=== PATIENT | female | born 1955 | race Caucasian/White ===

== ENCOUNTER 2022-03-09 23:53 | Inpatient (IN) | payer OTHER ==
[~2022-03-09] VITALS: Ht 170.2 cm; Wt 116.7 kg
[2022-03-10 02:00] LABS: Basophils # (auto) 0 10 ^3/uL (0-0.2); Basophils % (auto) 0.1 % (0.0-2.0); Eosinophils # (auto) 0 10 ^3/uL (0-0.8); Eosinophils % (auto) 0.1 % (0.0-7.0); Hematocrit 31.3 % (36.0-46.0); Hemoglobin 10.4 g/dL (12.2-16.2); Lymphocytes # (auto) 0.5 10 ^3/uL (0.4-5.4); Lymphocytes % (auto) 4.2 % (10.0-50.0); Mean Corpuscular Hemoglobin 28.9 pg (28.0-32.0); Mean Corpuscular Hgb Conc. 33.3 g/dL (32.0-36.0); Mean Corpuscular Volume 86.7 fL (80.0-100.0); Monocytes # (auto) 0.9 10 ^3/uL (0-1.3); Monocytes % (auto) 8.2 % (0.0-12.0); Neutrophils # (auto) 10.1 10 ^3/uL (1.6-8.6); Neutrophils % (auto) 87.4 % (37.0-80.0); Nucleated Red Blood Cells % 0.1 %; Red Blood Cells 3.61 10^6/uL (4.0-5.20); Red Cell Distribution Width 13.9 % (11.8-14.3); White Blood Cell 11.5 10^3/uL (4.4-10.8)
[2022-03-10 02:19] LABS: Albumin 3.1 g/dL (3.4-5.0); Calcium 8.1 mg/dL (8.5-10.1); Potassium 3.8 mmol/L (3.5-5.1)
[2022-03-10 02:21] LABS: BUN/Creatinine Ratio 23.2
[2022-03-10 02:23] LABS: Bilirubin, Total 1.1 mg/dL (0.2-1.0); Total Protein 6.9 g/dL (6.4-8.2)
[2022-03-10 06:50] LABS: Urine Bacteria NONE SEEN /hpf (None Seen); Urine Blood Negative /uL (Negative); Urine Specific Gravity 1.013 (1.001-1.035); Urine WBC 19 /hpf (0 - 5)
[2022-03-10] MEDS ORDERED: FUROSEMIDE 100 MG/10ML VIAL IV ONE (12:45)
[2022-03-10] MEDS ORDERED: AZITHROMYCIN 500MG/ 250ML 250 ML IV ONE (13:00)
[2022-03-10] MEDS ORDERED: DEXTROSE (50%) 50ML SYRG IV PRN (13:00)
[2022-03-10] MEDS ORDERED: BACL10TA PO (13:24)
[2022-03-10] MEDS ORDERED: CHOL20007 OR (13:24)
[2022-03-10] MEDS ORDERED: POTA10TA51 PO (13:24)
[2022-03-10] MEDS ORDERED: HYDR25TA4 PO (13:24)
[2022-03-10] MEDS ORDERED: CARV6.25 PO (13:24)
[2022-03-10] MEDS ORDERED: AMLO-489 PO (13:24)
[2022-03-10] MEDS ORDERED: ASPI-543 PO (13:24)
[2022-03-10] MEDS ORDERED: FURO1TAB31 PO (13:24)
[2022-03-10] MEDS ORDERED: FEBU40TA PO (13:24)
[2022-03-10] MEDS ORDERED: ATOR40TA52 PO (13:24)
[2022-03-10] MEDS ORDERED: FUROSEMIDE 40 MG/4 ML VIAL IV ONE (13:30)
[2022-03-10] MEDS ORDERED: INS7030I SC ×2 (13:30)
[2022-03-10] MEDS: SODIUM CHLOR 0.9% PF (SALINE LOCK) 10ML VIAL/SYR IV SCH ×2 (14:20→22:53)
[2022-03-10 15:14] LABS: INR 0.98 (0.9-1.15); Partial Thromboplastin Time 32.3 sec (24.6-33.4)
[2022-03-10 17:15] LABS: Hepatitis A Ab IgM Negative; Hepatitis B Core IgM Negative; Hepatitis C Antibody Negative (Negative)
[2022-03-10] MEDS: InsuLIN REG 1unit/0.01ml Soln (100units/ml) SC SCH ×2 (17:26→23:32)
[2022-03-10] MEDS: ACCU-CHEK COMFORT CURVE STRIP VI SCH ×2 (17:26→23:27)
[2022-03-11] MEDS: SODIUM CHLOR 0.9% PF (SALINE LOCK) 10ML VIAL/SYR IV SCH ×3 (06:00→21:56)
[2022-03-11 07:07] LABS: Basophils # (auto) 0.1 10 ^3/uL (0-0.2); Basophils % (auto) 0.8 % (0.0-2.0); Eosinophils # (auto) 0.1 10 ^3/uL (0-0.8); Eosinophils % (auto) 1.1 % (0.0-7.0); Hematocrit 31.4 % (36.0-46.0); Hemoglobin 10.5 g/dL (12.2-16.2); Lymphocytes # (auto) 1.1 10 ^3/uL (0.4-5.4); Lymphocytes % (auto) 10.9 % (10.0-50.0); Mean Corpuscular Hemoglobin 28.7 pg (28.0-32.0); Mean Corpuscular Hgb Conc. 33.6 g/dL (32.0-36.0); Mean Corpuscular Volume 85.5 fL (80.0-100.0); Monocytes % (auto) 9.5 % (0.0-12.0); Neutrophils % (auto) 77.7 % (37.0-80.0); Nucleated Red Blood Cells % 0.1 %; Red Blood Cells 3.67 10^6/uL (4.0-5.20); White Blood Cell 10.3 10^3/uL (4.4-10.8)
[2022-03-11 07:28] LABS: Albumin 2.8 g/dL (3.4-5.0); Calcium 8.4 mg/dL (8.5-10.1); Potassium 3.9 mmol/L (3.5-5.1)
[2022-03-11 07:33] LABS: BUN/Creatinine Ratio 23.5; Total Protein 7.2 g/dL (6.4-8.2)
[2022-03-11] MEDS: ACCU-CHEK COMFORT CURVE STRIP VI SCH ×4 (08:16→21:46)
[2022-03-11] MEDS: InsuLIN REG 1unit/0.01ml Soln (100units/ml) SC SCH ×4 (08:20→21:46)
[2022-03-11] MEDS: ENOXAPARIN SOD 40 MG/0.4 ML SYRINGE SC SCH (12:04)
[2022-03-11] MEDS: AZITHROMYCIN 500MG/ 250ML 250 ML IV SCH (12:29)
[2022-03-11] MEDS ORDERED: BACLOFEN 10 MG TAB PO PRN (13:15)
[2022-03-11] MEDS ORDERED: CARVEDILOL 3.125 MG TAB PO ONE (13:45)
[2022-03-11 14:04] VITALS: BP 133/46
[2022-03-11] MEDS: ALBUTEROL SULF 2.5 MG/0.5ML(0.5%) NEB SOLN NEB SCH ×3 (14:47→22:26)
[2022-03-11] MEDS: IPRATROPIUM BROM 0.5 MG/2.5ML INH SOL NEB SCH ×3 (14:47→22:26)
[2022-03-11] MEDS: FUROSEMIDE 20 MG/2 ML VIAL IV SCH (17:16)
[2022-03-11] MEDS: BUDESONIDE (INHALATION) 0.5 MG/2 ML NEB NEB SCH (19:49)
[2022-03-11] MEDS: CARVEDILOL 3.125 MG TAB PO SCH (21:44)
[2022-03-11] MEDS: POTASSIUM CHL 10 Meq TABLET PO SCH (21:45)
[2022-03-11] MEDS: INSULIN 70/30 1unit/0.01ml Susp (100units/ml) SC SCH (21:46)
[2022-03-11 22:00] VITALS: BP 131/44
[2022-03-12 05:00] VITALS: BP 133/48
[2022-03-12] MEDS: BUDESONIDE (INHALATION) 0.5 MG/2 ML NEB NEB SCH ×2 (05:43→22:15)
[2022-03-12] MEDS: ALBUTEROL SULF 2.5 MG/0.5ML(0.5%) NEB SOLN NEB SCH ×5 (05:43→22:15)
[2022-03-12] MEDS: IPRATROPIUM BROM 0.5 MG/2.5ML INH SOL NEB SCH ×5 (05:43→22:15)
[2022-03-12] MEDS: ACCU-CHEK COMFORT CURVE STRIP VI SCH ×4 (06:26→22:37)
[2022-03-12] MEDS: SODIUM CHLOR 0.9% PF (SALINE LOCK) 10ML VIAL/SYR IV SCH ×3 (06:27→22:34)
[2022-03-12] MEDS: InsuLIN REG 1unit/0.01ml Soln (100units/ml) SC SCH ×4 (06:27→22:37)
[2022-03-12] MEDS: FUROSEMIDE 20 MG/2 ML VIAL IV SCH ×2 (06:30→17:22)
[2022-03-12 07:04] LABS: BUN/Creatinine Ratio 28.4; Calcium 8.3 mg/dL (8.5-10.1); Potassium 4.1 mmol/L (3.5-5.1)
[2022-03-12] MEDS: INSULIN 70/30 1unit/0.01ml Susp (100units/ml) SC SCH ×2 (07:50→22:36)
[2022-03-12] MEDS: ENOXAPARIN SOD 40 MG/0.4 ML SYRINGE SC SCH (08:36)
[2022-03-12] MEDS: ASPirin-EC 81 mg tab PO SCH (08:36)
[2022-03-12] MEDS: CARVEDILOL 3.125 MG TAB PO SCH ×2 (08:37→22:35)
[2022-03-12] MEDS: ATORVASTATIN 20 MG TAB PO SCH (08:37)
[2022-03-12] MEDS: AZITHROMYCIN 500MG/ 250ML 250 ML IV SCH (08:38)
[2022-03-12] MEDS: POTASSIUM CHL 10 Meq TABLET PO SCH ×2 (08:38→22:35)
[2022-03-12 09:00] VITALS: BP 152/52
[2022-03-12] MEDS ORDERED: guaiFENesin-DM 100/10mg/5ml SYR PO PRN (09:15)
[2022-03-12 13:00] VITALS: BP 145/90
[2022-03-12 16:30] VITALS: BP 152/50
[2022-03-12 22:00] VITALS: BP 145/50
[2022-03-13 05:00] VITALS: BP 141/61
[2022-03-13 05:14] LABS: Basophils # (auto) 0 10 ^3/uL (0-0.2); Basophils % (auto) 0.5 % (0.0-2.0); Eosinophils # (auto) 0.4 10 ^3/uL (0-0.8); Eosinophils % (auto) 4.8 % (0.0-7.0); Hemoglobin 9.4 g/dL (12.2-16.2); Lymphocytes % (auto) 12.3 % (10.0-50.0); Mean Corpuscular Hemoglobin 28.6 pg (28.0-32.0); Mean Corpuscular Hgb Conc. 33.4 g/dL (32.0-36.0); Mean Corpuscular Volume 85.4 fL (80.0-100.0); Monocytes # (auto) 0.8 10 ^3/uL (0-1.3); Monocytes % (auto) 9.5 % (0.0-12.0); Neutrophils # (auto) 6.2 10 ^3/uL (1.6-8.6); Neutrophils % (auto) 72.9 % (37.0-80.0); Red Blood Cells 3.28 10^6/uL (4.0-5.20); Red Cell Distribution Width 13.7 % (11.8-14.3); White Blood Cell 8.5 10^3/uL (4.4-10.8)
[2022-03-13] MEDS: FUROSEMIDE 20 MG/2 ML VIAL IV SCH ×2 (05:16→16:36)
[2022-03-13] MEDS: SODIUM CHLOR 0.9% PF (SALINE LOCK) 10ML VIAL/SYR IV SCH ×3 (05:16→21:43)
[2022-03-13 05:33] LABS: Calcium 8.2 mg/dL (8.5-10.1); Potassium 4.2 mmol/L (3.5-5.1)
[2022-03-13] MEDS: ALBUTEROL SULF 2.5 MG/0.5ML(0.5%) NEB SOLN NEB SCH ×5 (06:09→22:23)
[2022-03-13] MEDS: IPRATROPIUM BROM 0.5 MG/2.5ML INH SOL NEB SCH ×5 (06:09→22:23)
[2022-03-13] MEDS: ACCU-CHEK COMFORT CURVE STRIP VI SCH ×4 (06:55→21:47)
[2022-03-13] MEDS: InsuLIN REG 1unit/0.01ml Soln (100units/ml) SC SCH ×4 (06:55→21:47)
[2022-03-13] MEDS: INSULIN 70/30 1unit/0.01ml Susp (100units/ml) SC SCH ×2 (08:00→21:46)
[2022-03-13] MEDS: ASPirin-EC 81 mg tab PO SCH (08:46)
[2022-03-13] MEDS: POTASSIUM CHL 10 Meq TABLET PO SCH ×2 (08:46→21:44)
[2022-03-13] MEDS: ATORVASTATIN 20 MG TAB PO SCH (08:46)
[2022-03-13] MEDS: CARVEDILOL 3.125 MG TAB PO SCH ×2 (08:47→21:45)
[2022-03-13] MEDS: ENOXAPARIN SOD 40 MG/0.4 ML SYRINGE SC SCH (08:47)
[2022-03-13] MEDS: AZITHROMYCIN 500MG/ 250ML 250 ML IV SCH (08:48)
[2022-03-13 09:04] VITALS: BP 159/62
[2022-03-13] MEDS: BUDESONIDE (INHALATION) 0.5 MG/2 ML NEB NEB SCH ×2 (09:55→18:56)
[2022-03-13 13:20] VITALS: BP 142/50
[2022-03-13 16:21] VITALS: BP 142/50
[2022-03-13 16:52] VITALS: BP 115/63
[2022-03-13 22:00] VITALS: BP 148/58
[2022-03-14] VITALS (7 sets, daily range): BP systolic 122–157; BP diastolic 41–64
[2022-03-14] MEDS: FUROSEMIDE 20 MG/2 ML VIAL IV SCH ×2 (05:27→17:52)
[2022-03-14] MEDS: SODIUM CHLOR 0.9% PF (SALINE LOCK) 10ML VIAL/SYR IV SCH ×2 (05:28→17:46)
[2022-03-14] MEDS: InsuLIN REG 1unit/0.01ml Soln (100units/ml) SC SCH ×3 (06:11→17:54)
[2022-03-14] MEDS: ACCU-CHEK COMFORT CURVE STRIP VI SCH ×3 (06:12→17:45)
[2022-03-14] MEDS: ALBUTEROL SULF 2.5 MG/0.5ML(0.5%) NEB SOLN NEB SCH ×4 (06:29→18:45)
[2022-03-14] MEDS: IPRATROPIUM BROM 0.5 MG/2.5ML INH SOL NEB SCH ×4 (06:29→18:44)
[2022-03-14] MEDS: INSULIN 70/30 1unit/0.01ml Susp (100units/ml) SC SCH (08:00)
[2022-03-14] MEDS: AZITHROMYCIN 500MG/ 250ML 250 ML IV SCH (09:50)
[2022-03-14] MEDS: ATORVASTATIN 20 MG TAB PO SCH (09:51)
[2022-03-14] MEDS: CARVEDILOL 3.125 MG TAB PO SCH (09:51)
[2022-03-14] MEDS: POTASSIUM CHL 10 Meq TABLET PO SCH (09:52)
[2022-03-14] MEDS: ASPirin-EC 81 mg tab PO SCH (09:52)
[2022-03-14] MEDS: ENOXAPARIN SOD 40 MG/0.4 ML SYRINGE SC SCH (09:52)
[2022-03-14] MEDS: BUDESONIDE (INHALATION) 0.5 MG/2 ML NEB NEB SCH ×2 (10:07→18:45)
[2022-03-14] MEDS ORDERED: AZIT250T9 PO (12:36)
[2022-03-14 13:40] LABS: Hepatitis C Antibody Negative (Negative)
[2022-03-15] MEDS ORDERED: AZITHROMYCIN 250 MG TAB PO SCH (10:00)
== END 2022-03-14 20:15 | disposition home or self-care (01) | DRG 189 ==
LOC: EDSEX 23:53 → EDBD 23:53 → ER 23:53 → TELE 03-10 12:02 → TELE-CENTR 03-11 14:02
PROVIDERS: ADMIT Nurse Practitioner Family; ATTEND Hospitalist
DX: J96.21 Acute and chronic respiratory failure with hypoxia (principal); N17.0 Acute kidney failure with tubular necrosis; I13.0 Hypertensive heart and chronic kidney disease with heart failure and stage 1 through stage 4 chronic kidney disease, or unspecified chronic kidney disease; N18.4 Chronic kidney disease, stage 4 (severe); R65.10 Systemic inflammatory response syndrome (SIRS) of non-infectious origin without acute organ dysfunction; Z68.41 Body mass index [BMI] 40.0-44.9, adult; J44.1 Chronic obstructive pulmonary disease with (acute) exacerbation; E66.01 Morbid (severe) obesity due to excess calories; E11.22 Type 2 diabetes mellitus with diabetic chronic kidney disease; E88.09 Other disorders of plasma-protein metabolism, not elsewhere classified; I50.9 Heart failure, unspecified; K76.0 Fatty (change of) liver, not elsewhere classified; Z79.4 Long term (current) use of insulin; Z87.891 Personal history of nicotine dependence; Z88.2 Allergy status to sulfonamides; Z88.8 Allergy status to other drugs, medicaments and biological substances; Z88.0 Allergy status to penicillin; D63.1 Anemia in chronic kidney disease
CPT/HCPCS: 36415; 71045; 76705; 76775; 80048; 80053; 80074; 81001; 82306; 82962; 83036; 83605; 83880; 83970; 84100; 84484; 85025; 85610; 85730; 86803; 87040; 87340; 93005; 93306; 94640; G0378; J1815